=== PATIENT | male | born 1975 | race Caucasian/White ===

== ENCOUNTER 2017-05-02 16:48 | Inpatient (IN) ==
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
[2017-05-02] MEDS ORDERED: tiZANidine 4 MG TABLET PO PRN (19:56)
[2017-05-02] MEDS ORDERED: Naloxone 0.4 MG/ML INJ IVP PRN (19:58)
[2017-05-02] MEDS: OXYCODONE Oral CONC 10 MG/0.5 ML ORAL.SYG SL PRN (20:31)
[2017-05-02] MEDS: Gabapentin 300 MG CAPSULE PO SCH (20:31)
[2017-05-02] MEDS: *HR* Morphine Sulfate SR (12 HR) 30 MG TABLET.ER PO SCH (20:38)
[2017-05-02] MEDS: *HR* HYDROcodone/Acet 5/325 mg TABLET PO PRN (22:04)
[2017-05-03] MEDS: OXYCODONE Oral CONC 10 MG/0.5 ML ORAL.SYG SL PRN ×2 (00:39→13:06)
[2017-05-03] MEDS ORDERED: *HR* HYDROcodone/Acet 5/325 mg TABLET PO ONE (03:42)
[2017-05-03] MEDS ORDERED: *HR* Enoxaparin 100 MG/ML SYRINGE SQ SCH ×3 (06:00→18:00)
[2017-05-03] MEDS: *HR* HYDROcodone/Acet 5/325 mg TABLET PO PRN (06:08)
[2017-05-03 06:22] LABS: Basophils # 0.1 K/mcL (0.0-0.2); Eosinophils # 0.1 K/mcL (0.0-0.6); Eosinophils % 2.7 %; Hematocrit 41.1 % (37.5-50.1); Hemoglobin 13.6 g/dL (12.9-16.9); Immature Granulocytes % 0.4 % (0-4); Lymphocytes # 2.8 K/mcL (0.6-4.6); Lymphocytes % 53.1 %; Mean Corpuscular HGB Conc 33.1 g/dL (31.6-35.5); Mean Corpuscular Hemoglobin 29.2 pg (28.0-33.3); Mean Corpuscular Volume 88.4 fL (83.0-100.0); Mean Platelet Volume 9.4 fL (9.4-12.4); Monocytes # 0.4 K/mcL (0.0-1.3); Neutrophils # 1.8 K/mcL (1.6-8.9); Platelet Count 143 K/mcL (140-400); Red Blood Count 4.65 M/mcL (4.19-5.50); Red Cell Distribution Width 11.6 % (11.5-14.5); Segmented Neutrophils % 34.8 %
[2017-05-03 06:27] LABS: INR 1.1; Prothrombin Time 12.1 Seconds (9.4-12.1)
[2017-05-03 06:46] LABS: Alanine Aminotransferase 29 Units/L (7-52); Albumin 3.5 g/dL (3.5-5.7); Albumin/Globulin Ratio 1.5 (1.1-2.2); Alkaline Phosphatase 50 Units/L (34-104); Aspartate Amino Transferase 18 Units/L (13-39); BUN/Creatinine Ratio 13 (6-26); Bilirubin,Total 0.4 mg/dL (0.3-1.0); Blood Urea Nitrogen 12 mg/dL (6-20); Calcium 8.7 mg/dL (8.6-10.3); Carbon Dioxide 21 mEq/L (23-29); Chloride 103 mEq/L (98-107); Globulin 2.4 g/dL (2.4-3.5); Glucose 235 mg/dL (70-105); Osmolality,Calculated 281 (280-300); Potassium 3.7 mEq/L (3.5-5.1); Sodium 132 mEq/L (136-145); Total Protein 5.9 g/dL (6.4-8.9); eGFR For African Americans > 60 (> 60); eGFR For Non-African Americans > 60 (> 60)
[2017-05-03] MEDS: *HR* Morphine Sulfate SR (12 HR) 30 MG TABLET.ER PO SCH (08:05)
[2017-05-03] MEDS: Gabapentin 300 MG CAPSULE PO SCH ×3 (08:05→16:17)
[2017-05-03] MEDS ORDERED: Lisinopril 20 MG TABLET PO SCH (09:00)
--- NOTE | 2017-05-03 09:12 | Internal Med Progress Note ---
Date of Encounter: 05/03/17 Time of Encounter: 09:09 - Assessment and plan (1) Pulmonary embolism Current Visit: Yes Status: Acute Assessment and plan: Reported as acute pulmonary emboli within the segmental branches of the right and left lower lobes. Started on Lovenox therapeutic dose. Hematology is consulted. The patient was on Eliquis and reports compliance. Not sure if it is worth it to check hypercoagulable panel in the setting of an acute PE on anticoagulation. We will leave up to hematology. We will check an echocardiogram and follow-up on lower extremity Dopplers. Qualifiers: Pulmonary embolism type: other Chronicity: acute Acute cor pulmonale presence: without acute cor pulmonale Qualified Code(s): I26.99 - Other pulmonary embolism without acute cor pulmonale (2) DVT (deep venous thrombosis) Current Visit: Yes Status: Acute Assessment and plan: Recently diagnosed early April with right popliteal vein and posterior tibial vein acute thrombosis. I repeat lower extremity Doppler has been ordered. Qualifiers: DVT location: lower extremity Affected thrombotic vein of extremity: tibial Laterality: right Qualified Code(s): I82.441 - Acute embolism and thrombosis of right tibial vein (3) HTN (hypertension) Current Visit: Yes Status: Acute Assessment and plan: Blood pressure is better now. Continue with current home meds of lisinopril Qualifiers: Hypertension type: essential hypertension Qualified Code(s): I10 - Essential (primary) hypertension (4) Chronic pain Current Visit: Yes Status: Acute Assessment and plan: Resume home pain meds regimen. Qualifiers: Chronic pain type: chronic pain syndrome Qualified Code(s): G89.4 - Chronic pain syndrome - Subjective Interval history: Patient was seen and examined. No acute events. Admitted yesterday with bilateral PEs. Recently diagnosed in early April with lower extremity DVT for which she was started on anticoagulation with Eliquis. Patient states compliance. Afebrile. Not hypoxic. Denies current chest pain. Yesterday was started on her period doses of Lovenox and hematology were consulted. - Constitutional Vitals: Temp Pulse Resp BP Pulse Ox 98.1 F 61 16 139/86 95 05/03/17 07:37 05/03/17 07:37 05/03/17 07:37 05/03/17 07:37 05/03/17 07:37 Exam: GEN: NAD CVS: RRR. S1, S2, No m/r/g RESP: CTAB ABD: Soft, NT, ND, +BS EXT: No edema. 2+ DP. No rashes NEURO: Nonfocal Internal Medicine: Result - Labs CBC & Chem 7: 05/03/17 05:30 05/03/17 05:30 Labs: Short CBC 05/03/17 Range/Units 05:30 WBC 5.3 (4.3-11.1) K/mcL Hgb 13.6 D (12.9-16.9) g/dL Hct 41.1 (37.5-50.1) % Plt Count 143 (140-400) K/mcL Neutrophils # 1.8 (1.6-8.9) K/mcL BMP 05/03/17 05:30 Sodium 132 L Potassium 3.7 Chloride 103 Carbon Dioxide 21 L BUN 12 Creatinine 0.95 Glucose 235 H Calcium 8.7 Liver Function 05/03/17 Range/Units 05:30 Total Bilirubin 0.4 (0.3-1.0) mg/dL AST 18 (13-39) Units/L ALT 29 (7-52) Units/L Alkaline Phosphatase 50 (34-104) Units/L Albumin 3.5 (3.5-5.7) g/dL - ABG Interpretation ABG results: PT/INR, D-dimer PT 12.1 Seconds (9.4-12.1) 05/03/17 05:30 Consult Discharge Plan - Plan Referrals: Rayshawn Gotti Jr, MD [Primary Care Provider] -
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
--- NOTE | 2017-05-03 14:40 | Discharge Summary ---
Date of Encounter: 05/03/17 Time of Encounter: 14:37 - Discharge Diagnosis (1) Pulmonary embolism Priority: Primary Status: Acute Qualifiers: Pulmonary embolism type: other Chronicity: acute Acute cor pulmonale presence: without acute cor pulmonale Qualified Code(s): I26.99 - Other pulmonary embolism without acute cor pulmonale (2) DVT (deep venous thrombosis) Priority: Primary Status: Acute Qualifiers: DVT location: lower extremity Affected thrombotic vein of extremity: tibial Chronicity: unspecified Laterality: right Qualified Code(s): I82.441 - Acute embolism and thrombosis of right tibial vein (3) HTN (hypertension) Priority: Secondary Status: Acute Qualifiers: Hypertension type: essential hypertension Qualified Code(s): I10 - Essential (primary) hypertension (4) Chronic pain Priority: Secondary Status: Acute Qualifiers: Chronic pain type: chronic pain syndrome Qualified Code(s): G89.4 - Chronic pain syndrome Hospital course: Mr. Henry is a 42 year old male who was recently dx with RLE DVT on eliqu[employer] since 04/14/17 who presented with 1 day hx of Chest tightness and feeling hot and Lightheadedness. Presented to the ED where CT chest found acute segmental b/l PE at [place] and sent here. He was initially seen in the ER on april for right lower extremity swelling where ultrasound Doppler found right popliteal, posterior tibial DVT that was acute. He was sent home on Qomuty which he has been compliant with. He works as a oil well services field supervisor and at work he felt hot, lightheaded but denied shortness of breath but developed chest tightness while at work. He measured his blood pressure noting a blood pressure of 184/ 110. He was advised to visit his local ER at [place] where a CT PE found acute bilateral segmental PE. On review he has noted that his right lower extremity swelling has improved but was still more swollen than the left. He was transferred to our facility and was seen by hematology. Echocardiogram showed normal right heart strain. He was never hypoxic. Lower extremity Dopplers were done and showed possibly worsening versus new DVT. Hematology recommended starting the patient on Lovenox therapeutic doses for 7 days and switch him to Pradaxa after that and they will see him in office in 2 weeks were hypercoagulable panel will be ordered. The patient was stable for discharge on 05/03. His co-pay will be $35 for the Lovenox and Pradaxa that he was okay with that. - Time Spent with Patient Total time spent providing and/or coordinating discharge services: Greater than 30 minutes - Discharge Medications Prescriptions: Enoxaparin [Lovenox] 100 mg SQ Q12HR 7 Days #14 syringe Dabigatran [Pradaxa] 150 mg PO BID #60 capsule Home Medications: Gabapentin [Neurontin] 600 mg PO QID 12/08/16 [History] Lisinopril [Zestril] 20 mg PO DAILY 12/08/16 [History] Omeprazole [PriLOSEC] 40 mg PO DAILY 12/08/16 [History] Tizanidine HCl 2 mg PO QPM 12/08/16 [History] Ms Contin 20 mg PO Q8H 05/02/17 [History] OxyCODONE Immed Rel [Roxicodone 10 MG] 10 mg PO Q4H PRN 05/02/17 [History] Tizanidine HCl 4 mg PO HS PRN 05/02/17 [History] Dabigatran [Pradaxa] 150 mg PO BID #60 capsule 05/03/17 [Rx] Enoxaparin [Lovenox] 100 mg SQ Q12HR 7 Days #14 syringe 05/03/17 [Rx] Allergies/Adverse Reactions: 3 Allergy/AdvReac Type Severity Reaction Status Date / Time Amoxicillin [From Augmentin] Allergy Rash Verified 05/02/17 14:20 clavulanic acid Allergy Rash Verified 05/02/17 14:20 [From Augmentin] Date of admission: 05/02/17 19:58 Primary care physician: Rayshawn Gotti Jr, MD Consults: 05/02/17 20:00 Consult to Oncology [CONS] Routine Consulting Provider: Oncology [facility] Reason for Consult: advised on anticoagulation. Recent DVT, now dx with PE on eliquis Call Completed: No - Constitutional Vitals: Temp Pulse Resp BP Pulse Ox 98.1 F 61 16 139/86 95 05/03/17 07:37 05/03/17 07:37 05/03/17 07:37 05/03/17 07:37 05/03/17 07:37 Exam: GEN: NAD CVS: RRR. S1, S2, No m/r/g RESP: CTAB ABD: Soft, NT, ND, +BS EXT: Right leg swelled up compared to the left.. 2+ DP. No rashes NEURO: Nonfocal - Patient Status Disposition: Home, Self-Care Condition: Fair Overall status at discharge: patient is progressing back to baseline - Discharge Instructions Follow Up With: Rayshawn Gotti Jr, MD [Primary Care Provider] - Alphonse Bernard [Non-Partnered Physician] - (2 weeks) Additional Instructions: You have been started on lovenox injections for 7 days twice a day. After that you will start taking Pradaxa 150 mg twice a day - Diet and Activity Activity: increase activity as tolerated Diet: regular diet
[2017-05-03 15:33] VITALS: BP 103/53
[2017-05-03] MEDS ORDERED: tiZANidine 4 MG TABLET PO SCH (18:00)
== END 2017-05-03 17:05 | disposition home or self-care (01) | DRG 176 ==
LOC: 2ANU
PROVIDERS: ADMIT Internal Medicine; ATTEND Internal Medicine